=== PATIENT | male | born 1975 | race Caucasian/White ===

== ENCOUNTER 2021-01-28 16:20 | Emergency (ER) | payer OTHER ==
[2021-01-28 18:14] LABS: BASOPHIL 0.7 % (0-2); EOSINOPHIL 3.3 % (0-5); HCT 31.3 % (42.0-52.0); HGB 9.1 g/dl (13.2-18.0); LYMPHOCYTE 32.5 % (15-48); MCH 20.4 pg (25.0-31.0); MCHC 29.1 g/dL (32.0-36.0); MCV 70.3 fL (78.0-100.0); MONOCYTE 10.6 % (0-12); MPV 8.6 fL (6.0-9.5); NEUTROPHIL 52.8 % (41-80); NRBC 0; PLT 481 K/uL (150-400); RBC 4.45 M/uL (4.70-6.00); RDW 15.9 % (11.5-14.0); WBC 6.7 K/uL (4.0-10.5)
[2021-01-28 18:21] LABS: INR 0.98 (0.9-1.2); PROTHROMBIN TIME 12.4 SECONDS (11.8-13.4); PTT 28.1 SECONDS (24.4-34.7)
[2021-01-28 18:33] LABS: ALBUMIN 4.3 g/dL (3.4-5.0); BILIRUBIN - TOTAL 0.2 mg/dL (0.2-1.0); BUN/CREAT RATIO (CALC) 16.2 RATIO; CREATININE 0.99 mg/dL (0.67-1.17); GLOBULIN (CALCULATION) 3.6 g/dL; POTASSIUM 4.1 mmol/L (3.5-5.1); TOTAL PROTEIN 7.9 g/dL (6.4-8.2)
[2021-01-28 20:03] LABS: BILIRUBIN NEGATIVE (NEGATIVE); BLOOD NEGATIVE Ery/uL (NEGATIVE); CLARITY CLEAR (CLEAR); COLOR YELLOW (YELLOW); GLUCOSE (U) NORMAL (NORMAL); LEUKOCYTES NEGATIVE Leu/uL (NEGATIVE); NITRITE NEGATIVE (NEGATIVE); PROTEIN NEGATIVE (NEGATIVE); UROBILINOGEN 0.2 mg/dL (0.2-1.0); pH 6.5 (5.0-9.0)
[2021-01-28] MEDS ORDERED: IRON325 M1 PO (20:50)
[2021-01-28] MEDS ORDERED: COLACE100 MG PO (20:50)
== END 2021-01-28 21:35 | disposition home or self-care (01) ==
LOC: FER 16:20
PROVIDERS: Internal Medicine; Nurse Practitioner Family
DX: D64.9 Anemia, unspecified (principal); K92.1 Melena; E11.9 Type 2 diabetes mellitus without complications; F17.290 Nicotine dependence, other tobacco product, uncomplicated; Z86.16 Personal history of COVID-19
CPT/HCPCS: 36415; 80053; 81003; 82150; 82270; 83690; 85025; 85610; 85730; 86850; 86900; 86901; J7030; Q9967